=== PATIENT | female | born 1985 | race Caucasian/White ===

== ENCOUNTER 2021-01-21 05:13 | Emergency (ER) | payer BC ==
[2021-01-21 05:46] LABS: RED BLOOD COUNT 5.05 M/UL (4.00-5.10); WHITE BLOOD COUNT 11.3 K/UL (4.5-11.0)
[2021-01-21 06:24] LABS: BUN/CREATININE RATIO 10 (0-10)
== END 2021-01-21 07:15 | disposition home or self-care (01) ==
LOC: ER1 05:13
PROVIDERS: Family Medicine
DX: I47.1 Supraventricular tachycardia (principal)
CPT/HCPCS: 80053; 82550; 82553; 83874; 84484; 85025; 93005; 99285

== ENCOUNTER 2021-04-10 16:40 | Emergency (ER) | payer BC ==
[2021-04-10 17:39] LABS: HEMOGLOBIN 13.7 gm/dl (12.3-15.3); RED BLOOD COUNT 5.1 M/UL (4.00-5.10)
[2021-04-10] MEDS ORDERED: ZOFRAN ODT 4 MG4 MG PO (19:23)
[2021-04-10] MEDS ORDERED: PROBIOTIC & AC1 EACH PO (19:26)
[2021-04-10] MEDS ORDERED: MECLIZINE HCL25 MG PO (19:42)
== END 2021-04-10 21:45 | disposition home or self-care (01) ==
LOC: ER1 16:40
PROVIDERS: Physician Assistant
DX: E86.0 Dehydration (principal); R19.7 Diarrhea, unspecified; N17.9 Acute kidney failure, unspecified; J18.9 Pneumonia, unspecified organism; R11.0 Nausea; E11.9 Type 2 diabetes mellitus without complications; Z88.0 Allergy status to penicillin; Z90.49 Acquired absence of other specified parts of digestive tract; Z88.8 Allergy status to other drugs, medicaments and biological substances; Z20.822 Contact with and (suspected) exposure to COVID-19
CPT/HCPCS: 71045; 80053; 83690; 84703; 85025; 96374; 99284; J2405; U0002

== ENCOUNTER 2022-03-11 11:29 | Emergency (ER) | payer BC ==
[~2022-03-11 11:29] MED LIST: MECLIZINE HCL25 MG PO; PROBIOTIC & AC1 EACH PO; ZOFRAN ODT 4 MG4 MG PO
[2022-03-11 13:37] LABS: HEMOGLOBIN 12.4 gm/dl (12.3-15.3); RED BLOOD COUNT 4.68 M/UL (4.00-5.10); WHITE BLOOD COUNT 11.9 K/UL (4.5-11.0)
[2022-03-11 14:07] LABS: BUN/CREATININE RATIO 19 (0-10)
== END 2022-03-11 18:18 | disposition home or self-care (01) ==
LOC: ER1 11:29
PROVIDERS: Emergency Medicine
DX: M79.601 Pain in right arm (principal); E66.9 Obesity, unspecified; Z90.49 Acquired absence of other specified parts of digestive tract
CPT/HCPCS: 71045; 80053; 82550; 82553; 84484; 84703; 85025; 85379; 93005; 99284